=== PATIENT | male | born 1955 | race Caucasian/White ===

== ENCOUNTER 2016-11-20 09:37 | Day surgery (SDC) | payer OTHER ==
[2016-11-20] MEDS ORDERED: D5 LR 1000 ML 1,000 ML IV ONE (09:51)
[2016-11-20] MEDS ORDERED: DIPRIVAN VIAL 20 ML ONE (11:42)
[2016-11-20] MEDS ORDERED: DIPRIVAN VIAL 10 ML ONE (12:02)
[2016-11-20 12:30] VITALS: BP 118/62
== END 2016-11-20 11:35 | disposition home or self-care (01) ==
LOC: SURG1 09:37
PROVIDERS: ATTEND Internal Medicine Gastroenterology
PROC: 0DBC8ZX Excision of Ileocecal Valve, Via Natural or Artificial Opening Endoscopic, Diagnostic (ICD-10-PCS; principal; 2016-11-20 13:00)
PROC: 0DJD8ZZ Inspection of Lower Intestinal Tract, Via Natural or Artificial Opening Endoscopic (ICD-10-PCS; principal; 2016-11-20 13:00)
PROC: 0DBP8ZX Excision of Rectum, Via Natural or Artificial Opening Endoscopic, Diagnostic (ICD-10-PCS; principal; 2016-11-20 13:00)
DX: Z12.11 Encounter for screening for malignant neoplasm of colon (principal); K63.5 Polyp of colon; K64.0 First degree hemorrhoids; D12.6 Benign neoplasm of colon, unspecified
CPT/HCPCS: A4217; J3490; J7120